=== PATIENT | female | born 1935 | race Caucasian/White ===

== ENCOUNTER → 2016-12-02 | Outpatient (CLI) | payer MEDICARE, OTHER ==
--- NOTE | 2016-12-02 11:46 | CT ---
EXAM DESCRIPTION: CT MAXILLOFACIAL WITHOUT IV CONTRAST CLINICAL HISTORY: MAXILARY SINUSITIS COMPARISON: None Available. TECHNIQUE: CT of the sinuses is performed with direct axial imaging technique. Multiplanar reformatted images are reviewed post along with source images. FINDINGS: No extra spinous abnormality is detected. No intracranial abnormality is seen. The orbits as imaged are unremarkable. The paranasal sinuses are clear. Mild deviation of the nasal septum from left to right is noted. No mucoperiosteal thickening or evidence of an air-fluid levels observed. Mild mucosal disease is observed at the ostia of both ostiomeatal complexes. Both of the complexes are patent. IMPRESSION: Minimal mucosal disease is observed at the ostia both ostiomeatal complexes. The sinuses are otherwise clear. Electronically signed by: Rodney Kay MD 12/02/2016 11:44
== END ==
LOC: CT 10:08
PROVIDERS: ATTEND Family Medicine
DX: J32.0 Chronic maxillary sinusitis (principal)

== ENCOUNTER → 2017-01-07 | Outpatient (CLI) | payer MEDICARE, OTHER | END | disposition home or self-care (01) | LOC: LAB.O 10:38 | PROVIDERS: ATTEND Family Medicine | DX: R19.7 Diarrhea, unspecified (principal) ==

== ENCOUNTER → 2017-01-27 | Outpatient (CLI) | payer MEDICARE, OTHER ==
--- NOTE | 2017-01-27 13:16 | MRI ---
Procedure: MR THORACIC SPINE WITHOUT IV CONTRAST Exam Date: 01/27/2017 11:22 AM CDT Ordering Provider: RUSSELL CELAYA Clinical Indication: BACK PAIN Comparison: None Technique: Multiplanar MRI of the thoracic spine was obtained without the intravenous administration of contrast medium. Findings: There is normal signal within the marrow of the thoracic vertebral bodies. There is no marrow signal abnormality to suggest fracture or neoplasm. The intervertebral disc spaces are of normal signal characteristics. There is minimal disc bulge is seen within the lower thoracic spine without focal disc protrusion or focal herniation. No spinal canal or foraminal stenosis. The thoracic spinal cord is of normal signal and contour. The conus is of normal signal and contour and terminates at the L1 level. There is no paraspinal mass. There is no prevertebral fluid collection. Impression: Minimal degenerative disc changes in the lower thoracic spine. Otherwise, unremarkable MRI of the thoracic spine. Electronically signed by: Immanuel Mccarty MD 01/27/2017 1:15 PM CDT
== END | disposition home or self-care (01) ==
LOC: MRI 11:12
PROVIDERS: ATTEND Family Medicine
DX: M54.6 Pain in thoracic spine (principal)

== ENCOUNTER → 2017-03-28 | Outpatient (CLI) | payer MEDICARE, OTHER ==
--- NOTE | 2017-03-29 02:31 | US ---
Procedure: US ABDOMEN Exam Date: 03/28/2017 Ordering Provider: CHUCK KOROMA Clinical Indication: GENERALIZED ABD PN Comparison: 04/12/2009 CT abdomen Technique: Real-time ultrasonography was obtained over the abdominal viscera and agricultural sales representative images were recorded. Findings: The liver is normal in size and contour. There is normal echogenicity throughout the liver. There are no intrahepatic masses. There are couple of cysts in the right hepatic lobe, largest measuring 1.7 cm. There is no intrahepatic ductal dilatation. The gallbladder is surgically absent. The extrahepatic common duct is normal in size measuring 5 mm. The spleen is normal in size and contour. There is normal internal echogenicity of the spleen. There are no splenic masses. The visualized portions of the pancreas are normal. The aorta has a normal appearance. The inferior vena cava has a normal appearance. The right kidney is normal in size and contour. The right kidney measures 10.6 cm in bipolar length. Cortical thickness and echogenicity are normal. There are no masses, calculi, or hydronephrosis. There is a 1.8 cm cyst. The left kidney is normal in size and contour. The left kidney measures 10.0 cm in bipolar length. Cortical thickness and echogenicity are normal. There are no masses, calculi, or hydronephrosis. There is an 8 mm cyst. There is no ascites. Impression: 1. Hepatic cysts. 2. Prior cholecystectomy. 3. Simple renal cysts in both kidneys. No follow-up required. Electronically signed by: Prateek Hinkle MD 03/29/2017 2:30 AM CDT
--- NOTE | 2017-03-29 23:44 | US ---
Procedure: US PELVIS Exam Date: 03/28/2017 Ordering Provider: CHUCK KOROMA Clinical Indication: GENERALIZED ABD PN Comparison: None Technique: Transabdominal ultrasound of the pelvis was obtained. Findings: The uterus and ovaries are surgically absent. No suspicious fluid collections or masses visualized. No pelvic free fluid. Impression: 1. No acute findings. Electronically signed by: Prateek Hinkle MD 03/29/2017 11:43 PM CDT
== END | disposition home or self-care (01) ==
LOC: US 11:28
PROVIDERS: ATTEND Nurse Practitioner Family
DX: R10.84 Generalized abdominal pain (principal)

== ENCOUNTER → 2017-04-30 | Outpatient (CLI) | payer MEDICARE, OTHER ==
--- NOTE | 2017-05-01 09:20 | MAM ---
History: Well woman exam. Date of exam: 04/30/2017 Services provided: Bilateral full field digital screening mammography. CAD, the images were reviewed with R2 computer aided detection. FINDINGS: Glandular tissue is scattered glandular contour with slight nodularity. Comparison with 2016 exam. No dominant mass, architectural distortion or clustered microcalcification. Stable nodular glandular pattern since 2016. Benign-appearing calcifications bilaterally.. IMPRESSION: Benign exam Recommendation: Routine annual mammography BIRAD CATEGORY: 2 BENIGN Electronically signed by: Patsy Blount MD 05/01/2017 9:19 AM CDT Workstation: [id number]
== END ==
LOC: MAMMO 13:55
PROVIDERS: ATTEND Family Medicine
DX: Z12.31 Encounter for screening mammogram for malignant neoplasm of breast (principal)

== ENCOUNTER → 2017-06-12 | Outpatient (CLI) | payer MEDICARE, OTHER | END | disposition home or self-care (01) | LOC: GMAJ 10:46 | PROVIDERS: ATTEND Family Medicine | DX: E03.9 Hypothyroidism, unspecified (principal) ==

== ENCOUNTER → 2017-10-27 | Outpatient (CLI) | payer MEDICARE, OTHER ==
--- NOTE | 2017-10-28 07:41 | RAD ---
EXAM DESCRIPTION: Ankle,Right 3 Views CLINICAL HISTORY: 81 years Female, ANKLE PAIN COMPARISON: None. FINDINGS: 3 views of the right ankle show no acute fracture or malalignment. Degenerative calcifications arise from the tips of the medial and lateral malleolar. The tibiotalar joint space and talar dome are well-maintained. Calcaneal enthesophyte formation is noted at the insertion sites of the plantar fascia and Achilles tendon. There is a rounded 2.4 cm sclerotic cortical-based lesion inferiorly in the body of the calcaneus without aggressive features. IMPRESSION: Degenerative changes including calcaneal spurring, but no acute right ankle abnormality. 2.4 cm cortical-based sclerotic lesion inferiorly in the calcaneus. This probably represents a large bone island or other benign lesion, less likely metastasis. Bone scan could be performed for further evaluation if clinically suspicious. Electronically signed by: Subhash Pereira MD 10/28/2017 7:39 AM OBSTETRIC ASSISTANT
== END | disposition home or self-care (01) ==
LOC: RAD 08:10
PROVIDERS: ATTEND Orthopaedic Surgery
DX: M25.571 Pain in right ankle and joints of right foot (principal)

== ENCOUNTER → 2017-12-29 | Outpatient (CLI) | payer MEDICARE, OTHER | LOC: GMAJ 10:43 | PROVIDERS: ATTEND Family Medicine | DX: E03.9 Hypothyroidism, unspecified (principal); E78.2 Mixed hyperlipidemia ==

== ENCOUNTER 2018-01-26 02:55 | Emergency (ER) | payer MEDICARE, OTHER ==
--- NOTE | 2018-01-26 03:25 | ED.PDOC ---
History of Present Illness - General Chief Complaint: Cardiovascular Problem Stated Complaint: Feels heart racing Time Seen by Provider: 01/26/18 03:05 Source: patient Exam Limitations: no limitations - History of Present Illness Initial Comments: Patient presents concerned that she might have gone into atrial fibrillation today. She has a history of it and takes fleicainide for it. She said she was having palpitations about 7 hours ago but they went away. Tonight they happened again and she said she got herself "worked up" about it. She thinks that she probably wasn't having atrial fibrillation this evening but wanted to be sure. No chest pain or dyspnea. Currently asymptomatic. She had her "labs" checked by her pcp two weeks ago. Timing/Duration: unsure Severity: mild Improving Factors: nothing Worsening Factors: nothing Associated Symptoms: denies symptoms Allergies/Adverse Reactions: Allergies NO KNOWN ALLERGY Allergy (Unverified 11/13/12 14:42) Home Medications: Ambulatory Orders Aspirin [(None)] 325 mg PO DAILY 12/24/14 Cholecalciferol [Vitamin D] 2,000 unit PO DAILY 12/24/14 Coenzyme Q10 (Ubidecarenone) [Coq-10] 1 cap PO DAILY 12/24/14 Esomeprazole Magnesium [Nexium] 40 mg PO DAILY 12/24/14 Estropipate [Ogen] 0.75 mg PO QD 12/24/14 Fenofibric Acid [Trilipix] 135 mg PO DAILY 12/24/14 Flecainide Acetate 50 mg PO BID 12/24/14 Levothyroxine Sodium [Synthroid] 50 mcg PO DAILY 12/24/14 Magnesium [Magnesium 250 mg] 1 tab PO DAILY 12/24/14 Tram-3 Fatty Acids [Fish Oil] 1 cap PO DAILY 12/24/14 Simvastatin 20 mg PO DAILY 12/24/14 Multiple Vitamins W/ Minerals [Centrum Silver] 1 tab PO 01/26/18 Potassium 01/26/18 Review of Systems - Review of Systems Constitutional: States: no symptoms reported EENTM: States: no symptoms reported Respiratory: States: no symptoms reported Cardiology: States: see HPI Gastrointestinal/Abdominal: States: no symptoms reported Genitourinary: States: no symptoms reported Musculoskeletal: States: no symptoms reported Skin: States: no symptoms reported Neurological: States: no symptoms reported Endocrine: States: no symptoms reported Hematologic/Lymphatic: States: no symptoms reported Past Medical History (General) - Patient Medical History Hx Seizures: No Hx Stroke: No Hx Dementia: No Hx Asthma: No Hx of COPD: Yes Hx Cardiac Disorders: Yes - a fib Hx Congestive Heart Failure: No Hx Pacemaker: No Hx Hypertension: No Hx Thyroid Disease: Yes Hx Diabetes: No Hx Gastroesophageal Reflux: Yes Hx Renal Disease: No Hx Cancer: No Hx of HIV: No Hx Hepatitis C: No Hx MRSA: No Surgical History: appendectomy, cholecystectomy, Hysterectomy - Vaccination History Hx Influenza Vaccination: Yes - Social History Hx Tobacco Use: Yes Hx Alcohol Use: No Hx Substance Use: No Hx Substance Use Treatment: No Hx Depression: No - Triage Comment ED Triage Comment: States histroy of a-fib and feels heart racing Family Medical History - Family History Mother Family History: No Known Physical Exam - Physical Exam General Appearance: Alert Respiratory: chest non-tender, lungs clear, normal breath sounds Cardiovascular/Chest: normal peripheral pulses, regular rate, rhythm, no edema, other - no auscultation/pulse mismatch Gastrointestinal/Abdominal: normal bowel sounds, non tender, soft Skin Exam: normal color Progress - Progress Progress: 01/26/18 03:26 EKG read by me destinee GREGG. No ST changes nor T wave inversions. No LBBB. Departure - Departure Clinical Impression: Palpitations Disposition: Discharge to Home or Self Care Condition: Good Departure Forms: ED Discharge - Pt. Copy, Patient Portal Self Enrollment Diet: resume usual diet Activity: increase activity as tolerated Referrals: Konstantin Alejandra MD [Primary Care Provider] - 1-2 Weeks Home Medications: Ambulatory Orders Aspirin [(None)] 325 mg PO DAILY 12/24/14 Cholecalciferol [Vitamin D] 2,000 unit PO DAILY 12/24/14 Coenzyme Q10 (Ubidecarenone) [Coq-10] 1 cap PO DAILY 12/24/14 Esomeprazole Magnesium [Nexium] 40 mg PO DAILY 12/24/14 Estropipate [Ogen] 0.75 mg PO QD 12/24/14 Fenofibric Acid [Trilipix] 135 mg PO DAILY 12/24/14 Flecainide Acetate 50 mg PO BID 12/24/14 Levothyroxine Sodium [Synthroid] 50 mcg PO DAILY 12/24/14 Magnesium [Magnesium 250 mg] 1 tab PO DAILY 12/24/14 Tram-3 Fatty Acids [Fish Oil] 1 cap PO DAILY 12/24/14 Simvastatin 20 mg PO DAILY 12/24/14 Multiple Vitamins W/ Minerals [Centrum Silver] 1 tab PO 01/26/18 Potassium 01/26/18 Additional Instructions: Follow up with your regular doctor as needed. Return to the E.R. if symptoms happen again.
[2018-01-26 03:38] VITALS: BP 153/71; TEMP 96.4; O2SAT 96
== END 2018-01-26 03:38 | disposition home or self-care (01) ==
LOC: ER 02:55
DX: R00.2 Palpitations (principal); I48.91 Unspecified atrial fibrillation; K21.9 Gastro-esophageal reflux disease without esophagitis; E07.9 Disorder of thyroid, unspecified; Z79.82 Long term (current) use of aspirin

== ENCOUNTER → 2018-03-26 | Outpatient (CLI) | payer MEDICARE, OTHER | LOC: GMAJS 16:35 | PROVIDERS: ATTEND Physician Assistant | DX: N39.0 Urinary tract infection, site not specified (principal) ==

== ENCOUNTER → 2018-04-15 | Outpatient (CLI) | payer MEDICARE, OTHER ==
--- NOTE | 2018-04-15 16:46 | MRI ---
EXAM DESCRIPTION: Brain w/oContrast: MRI. CLINICAL HISTORY: DIZZINESS COMPARISON: CT head without contrast 04/12/2009. TECHNIQUE: Multiplanar, high-field MRI unit, multiple diffusion sequences, multiple conventional sequences without contrast. FINDINGS: Multiple small foci of hyperintense FLAIR and T2-weighted signal in the periventricular white matter and york-white matter junctions of the cerebral hemispheres. . Bilateral hypointense FLAIR signal and hyperintense T2 signal in the basal ganglia. No hemorrhage, no cerebral edema, no mass-effect. Normal signal in the brainstem and cerebellar hemispheres. No hemorrhage, no cerebral edema, no mass-effect. Concordance of the diffusion and non-diffusion sequences with no diffusion restriction. Cortical sulci, ventricles, and other CSF spaces, and the subdural spaces are minimally prominent but probably age appropriate. No effacement or displacement. No midline shift. No extra-axial hemorrhage. Normal flow signal void in the major vessels of the [place], and the venous sinuses. IACs are symmetric bilaterally. Minimal fluid signal in the inferior right mastoid air cells. Normal signal in the bilateral cerebellopontine angles. Pituitary gland occupies approximately half of the sella. Base of the cerebellar tonsils is at the level of the foramen magnum. Paranasal sinuses.. The bony calvarium is intact. IMPRESSION: 1. Multiple bilateral hyperintensities in the white matter and subcortical white matter most likely related to aging and cerebral microvascular disease. Possible old basal ganglia infarcts bilaterally. No diffusion restriction is seen. No hemorrhage, mass effect, cerebral edema or midline shift. 2. Mastoiditis on the right. Electronically signed by: Shashi Tello MD 04/15/2018 4:45 PM CDT
== END ==
LOC: MRI 13:00
PROVIDERS: ATTEND Family Medicine
DX: R42 Dizziness and giddiness (principal); H70.91 Unspecified mastoiditis, right ear

== ENCOUNTER → 2018-07-27 | Outpatient (CLI) | payer MEDICARE, OTHER ==
--- NOTE | 2018-07-27 16:32 | US ---
EXAM DESCRIPTION: Breast,Left: Ultrasound CLINICAL HISTORY: 82 yearsFemaleABN MAMMO COMPARISON: Digital diagnostic mammogram left breast on this visit. Bilateral screening digital breast tomosynthesis 07/08/2018. TECHNIQUE: Transcutaneous scanning of the left breast utilizing york-scale and Doppler modes. Scanning performed by the inbound call center agent and Dr. Tello. FINDINGS: Scanning in the lower outer quadrant of the left breast, with emphasis on the 400 clock position 6 cm from the nipple. Multiple small cysts and dilated ducts. Hypoechoic circumscribed oval-shaped mass with parallel orientation and partially posterior shadowing measuring approximately 3.1 x 3.5 mm and not vascular. Most likely a lymph node or fibroadenoma. Circumscribed hypoechoic mass with echogenic center measuring 6.8 x 2.8 mm with parallel orientation and mixed posterior features. Nonvascular. No abnormal distinct solid mass. No parenchymal edema or large calcifications. No overlying skin changes or abnormal vascularity. IMPRESSION: 1. Bi-Rads Category 2: Benign. 2. Please refer to diagnostic digital left breast tomosynthesis and 2-D image examination and report on this visit. The FINDINGS and the FOLLOW-UP plan were reviewed in person with the patient after the examination. Written communication explaining the IMPRESSION and FOLLOW-UP will be mailed to the patient and referring care provider. Electronically signed by: Shashi Tello MD 07/27/2018 4:31 PM CDT
--- NOTE | 2018-07-28 08:51 | MAM ---
EXAM DESCRIPTION: 3D Diagnostic, Left: Digital Mammography CLINICAL HISTORY: 82 yearsFemaleABNORMAL MAMMO . Focal asymmetry and groups of heterogeneous calcifications in the lateral mid left breast.. COMPARISON: Bilateral screening digital breast tomosynthesis 07/08/2018.. . TECHNIQUE: Bilateral LM projection full-field images, digital mammographic tomosynthesis technique. Digital spot focal magnification image in the CC projection lateral middle third left breast CAD not utilized. FINDINGS: The breast parenchymal density pattern is: Scattered areas of fibroglandular density. No skin thickening or nipple retraction . Left nipple is slightly inverted. Vascular calcifications, intramammary lymph nodes, secretory and solitary microcalcifications. In the lower outer quadrant of the anterior middle third of the left breast are small microcalcifications and coarse calcifications and asymmetric densities. A lobulated mass with calcifications in the upper outer quadrant of the left breast is most likely a degenerating fibroadenoma or lymph node. Ultrasound: Scanning in the lower outer quadrant of the left breast, with emphasis on the 400 clock position 6 cm from the nipple. Multiple small cysts and dilated ducts. Hypoechoic circumscribed oval-shaped mass with parallel orientation and partially posterior shadowing measuring approximately 3.1 x 3.5 mm and not vascular. Most likely a lymph node or fibroadenoma. Circumscribed hypoechoic mass with echogenic center measuring 6.8 x 2.8 mm with parallel orientation and mixed posterior features. Nonvascular. No abnormal distinct solid mass. No parenchymal edema or large calcifications. No overlying skin changes or abnormal vascularity. IMPRESSION: Benign exam. BIRAD CATEGORY: 2 BENIGN FINDINGS. RECOMMENDATIONS: FOLLOW UP: Return to routine digital bilateral screening, one year interval from June 2018. The FINDINGS and the FOLLOW-UP plan were reviewed in person with the patient after the examination. Written communication explaining the IMPRESSION and FOLLOW-UP will be mailed to the patient and referring care provider. According to the [employer], yearly mammograms are recommended starting at age 40 and continuing as long as a woman is in good health. Any breast change noted on a breast self-exam should be reported promptly to the patient's healthcare provider. Breast MRI is recommended for women with an approximately 20-25% or greater lifetime risk of breast cancer, including women with a strong family history of breast or ovarian cancer and women who have been treated for Hodgkin's disease. A negative mammographic report should not delay tissue diagnosis in patients with significant clinical history or physical findings. Extremely dense breast tissue limits the sensitivity of digital mammography. Electronically signed by: Shashi Tello MD 07/28/2018 8:49 AM CDT
== END ==
LOC: MAMMO 10:00
PROVIDERS: ATTEND Family Medicine
DX: R92.8 Other abnormal and inconclusive findings on diagnostic imaging of breast (principal)
CPT/HCPCS: 76641; 77065; G0279

== ENCOUNTER → 2018-08-20 | Outpatient (CLI) | payer MEDICARE, OTHER ==
--- NOTE | 2018-08-21 09:47 | MRI ---
EXAM DESCRIPTION: Lumbar Spine w/o Contrast : Magnetic Resonance Imaging. CLINICAL HISTORY: RADICULOPATHY COMPARISON: MRI scan cervical spine on the same visit. TECHNIQUE: Multiplanar, multiple standard sequences, non contrast MRI, lumbar spine. FINDINGS: L5-S1: Moderate disc space loss and disc desiccation predominantly in the midline into the left of midline. Left lateral disc osteophyte complex encroaching on the foramen. 6 mm grade 1 anterolisthesis. Mild right foraminal narrowing. Minimal flavum ligament hypertrophy with moderate facet arthrosis and hypertrophy. Mild canal narrowing. L4-5: Disc desiccation posterior broad-based mild bulge. Significant flavum ligament hypertrophy and minimal facet arthrosis with triangular shaped canal. Moderate narrowing. Mild left foraminal narrowing and right foramen patent. Deformity of the left L5 pars interarticularis with probable spondylolysis. L3-4: Disc desiccation with more narrowing and moderate type I endplate reactive changes on the right. Mild to moderate foraminal narrowing with disc spur complex encroaching on the foramen. Minimal posterior broad-based bulge. Minimal hypertrophy of the flavum ligaments and arthrosis of the facets. No significant canal narrowing. Left foramen patent. L2-3: Disc desiccation moderate to severe disc space narrowing left of midline. Left lateral disc osteophyte complex bulge with Modic type II endplate reactive changes. Moderate to severe right foraminal narrowing. 3 mm grade 1 retrolisthesis. Minimal posterior disc bulge with minimal inferior migration of the disc margin narrowing the bilateral subarticular recesses. Mild narrowing right foramen. L1-2: Disc desiccation anterior bulging and spurs. 3 mm grade 1 retrolisthesis and posterior broad-based disc bulge. Minimal hypertrophy of the flavum ligament with left facet arthrosis. No significant canal narrowing. Moderate narrowing of the left foramen and right foramen patent. Conus terminates at this level. T12-L1: Disc desiccation anterior herniation is abutting the posterior aorta at the level of the origins of the celiac axis and SMA. Tiny posterior bulge. No significant canal narrowing. Bilateral foramina are patent. . L1-L4 levoscoliosis Paravertebral soft tissues paraspinal muscle atrophy.. Right T1 and T2 circumscribed density in the superior L3 vertebral body consistent with hemangioma. Otherwise normal marrow signal in the remaining vertebral bodies and the posterior elements. Vertebral bodies are not compressed at any level. IMPRESSION: 1. Left side spondylosis at L5-S1 with disc spur complex encroaching on the foramen. 6 Millimeter grade 1 anterolisthesis. Left foraminal stenosis. 2. Minimal L4-5 disc bulge with significant encroachment on the posterior canal from the flavum ligaments and facets with moderate narrowing. 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 3. Mild right-sided moderate spondylosis at L3-4 with disc spur complex encroaching on the foramen with moderate narrowing. No significant canal narrowing. 4. Grade 1 anterolisthesis L2-3 with moderate right side spondylosis and moderate to severe foraminal narrowing. Narrowing of the bilateral subarticular recesses. Also grade 1 retrolisthesis at L2-3. Moderate narrowing of the left foramen by facet arthrosis and ligament hypertrophy. Electronically signed by: Shashi Tello MD 08/21/2018 9:45 AM CDT
--- NOTE | 2018-08-21 10:08 | MRI ---
EXAM DESCRIPTION: Cervical Spine: MRI. CLINICAL HISTORY: NECK PAIN COMPARISON: MRI lumbar scan on the same visit. TECHNIQUE: Multiplanar MRI, multiple sequences, non-contrast High-field.. Cervical spine. FINDINGS: C3-4: Disc desiccation with anterior bulging. Posterior midline protrusion 4 mm impressing on the cord but no cord edema. Small right uncinate spur and right neural foraminal narrowing. Moderate canal narrowing and left neural foramen patent. Minimal arthrosis right facet. C4-5: Disc desiccation and moderate disc space loss with anterior spurs and disc bulging. Tiny posterior disc osteophyte complex encroaching on the cord. Right facet arthrosis and uncinate spur with borderline neural foraminal stenosis. Moderate left neural foraminal narrowing and canal narrowing. C5-6: Disc desiccation and moderate disc space loss. Anterior bulging and spurs. Posterior small disc spur complex is broad-based and abutting the cord. More to the right of midline with right paracentral mild canal stenosis. Bilateral mild foraminal narrowing more on the right. Flavum ligament hypertrophy. Facets are negative. C6-7: Disc desiccation and minimal disc space loss. Anterior bulging and spurs. Posterior tiny disc spur complex bulge and mild canal narrowing. Right uncinate spur. Mild right neural foraminal narrowing. Flavum ligament hypertrophy. Facets are negative. Normal signal in the remaining discs with no bulging. Disc spaces preserved. Canal and neural foramina are patent. Facets are negative. Spinal alignment C2-C4 kyphosis. No cord compression or cord edema. Atlantoaxial joint with marginal hypertrophic changes.. Base of the cerebellar tonsils is at the level of the foramen magnum. Paravertebral soft tissues unremarkable. Vertebral bodies are not compressed at any level. Normal marrow signal in the remaining vertebral bodies and the posterior elements. IMPRESSION: 1. Posterior midline protrusion of the C3-4 disc impressing on the cord with no cord edema. Moderate central canal narrowing. 2. Tiny C4-5 posterior disc osteophyte complex encroaching on the cord. Disc space narrowing. Right borderline neural foraminal stenosis. 3. C5-6 disc space narrowing. Posterior right disc bulge and osteophyte with right paracentral mild canal stenosis. 4. Disc desiccation and disc space loss. Mild canal and neural foraminal narrowing. Electronically signed by: Shashi Tello MD 08/21/2018 10:07 AM CDT
== END ==
LOC: MRI 10:00
PROVIDERS: ATTEND Family Medicine
DX: M54.16 Radiculopathy, lumbar region (principal); M51.26 Other intervertebral disc displacement, lumbar region; M43.16 Spondylolisthesis, lumbar region; M50.21 Other cervical disc displacement, high cervical region; M50.222 Other cervical disc displacement at C5-C6 level

== ENCOUNTER → 2018-10-01 | Outpatient (CLI) | payer MEDICARE, OTHER ==
--- NOTE | 2018-10-02 16:12 | MAM ---
EXAM DESCRIPTION: Diagnostic Mammo,Right: Digital Mammography CLINICAL HISTORY: 82 [id number] new onset of Pain in the left breast. No palpable mass.. COMPARISON: Bilateral screening digital breast tomosynthesis 07/08/2018.. Diagnostic tomosynthesis left breast mammography and targeted left breast ultrasound 07/27/2018. TECHNIQUE: Right breast CC LM MLO projection full-field images, digital mammographic tomosynthesis technique. CAD not utilized. FINDINGS: The breast parenchymal density pattern is: Scattered areas of fibroglandular density. No skin thickening or nipple retraction fibroglandular tissues kind of nodular. Vascular calcifications. Solitary microcalcifications and coarse calcifications. Right axillary lymph nodes. No new focal, stellate mass or density, focal asymmetry , and no suspicious microcalcifications right breast. Stable mammograms compared to prior screening and diagnostic exams, taking into account differences in mammographic technique IMPRESSION: Benign exam. BIRAD CATEGORY: 2 BENIGN FINDINGS. RECOMMENDATIONS: FOLLOW UP: Routine digital bilateral mammographic screening, one year interval from June 2018. Written communication explaining the IMPRESSION and follow-up, will be mailed to the patient and referring health care provider. According to the [employer], yearly mammograms are recommended starting at age 40 and continuing as long as a woman is in good health. Any breast change noted on a breast self-exam should be reported promptly to the patient's healthcare provider. Breast MRI is recommended for women with an approximately 20-25% or greater lifetime risk of breast cancer, including women with a strong family history of breast or ovarian cancer and women who have been treated for Hodgkin's disease. A negative mammographic report should not delay tissue diagnosis in patients with significant clinical history or physical findings. Extremely dense breast tissue limits the sensitivity of digital mammography. Electronically signed by: Shashi Tello MD 10/02/2018 4:11 PM [facility]
== END ==
LOC: MAMMO 10:30
PROVIDERS: ATTEND Nurse Practitioner Family
DX: N64.4 Mastodynia (principal); N64.59 Other signs and symptoms in breast

== ENCOUNTER → 2018-10-22 | Outpatient (CLI) | payer MEDICARE, OTHER | LOC: GMAJ 14:23 | PROVIDERS: ATTEND Family Medicine | DX: E03.9 Hypothyroidism, unspecified (principal) ==

== ENCOUNTER → 2019-05-12 | Outpatient (CLI) | payer MEDICARE, OTHER | LOC: GMAJ 16:57 | PROVIDERS: ATTEND Family Medicine | DX: R10.13 Epigastric pain (principal) ==

== ENCOUNTER → 2019-05-18 | Outpatient (CLI) | payer MEDICARE, OTHER ==
--- NOTE | 2019-05-18 14:20 | CT ---
PROVIDED CLINICAL HISTORY/REASON FOR EXAM: EPIGASTRIC PAIN STUDY TYPE/TECHNIQUE: CT ABDOMEN WITH IV CONTRAST COMPARISON: 04/12/2009 FINDINGS: The visualized lung bases are unremarkable. There are multiple low-attenuation liver lesions, some of which are too small to definitively characterize. However there are a few lesions which do not measure fluid attenuation. For reference in the left hepatic lobe, axial 23 there is a 1.4 cm lesion. This was likely present on the 04/12/2009 examination although it is shown slow interval growth. A separate reference posterior right hepatic lobe lesion measures 1.6 cm, axial 42, also likely present on the prior examination although it previously measured 1 cm. Cholecystectomy. The residual cystic duct is mildly dilated. No biliary dilatation. The portal vein is patent. The spleen there is an adrenal glands are unremarkable. Symmetric renal parenchymal enhancement. No hydronephrosis. No obstructing ureteral stone. Punctate nonobstructing inferior pole left renal calculus. Bilateral renal cysts. Scattered colonic diverticula without focal inflammatory change. No evidence of bowel obstruction. Tiny hiatal hernia. Small duodenal diverticulum. Focal dilatation of the infrarenal abdominal aorta measuring up to 2.4 cm. Diffuse atherosclerotic disease. No drainable fluid collection. No free air. No adenopathy. No acute or suspicious osseous abnormality. IMPRESSION: 1. No acute CT findings to account for epigastric pain. 2. Multiple incompletely characterized liver lesions, most of which were present on the April 12, 2009 examination which suggests a benign etiology although they have demonstrated interval growth. Electronically signed by: Mitch Louis MD 05/18/2019 2:18 PM CDT
== END ==
LOC: CT 09:33
PROVIDERS: ATTEND Family Medicine
DX: R10.13 Epigastric pain (principal); K76.89 Other specified diseases of liver

== ENCOUNTER 2019-06-03 05:38 | Day surgery (SDC) | payer MEDICARE, OTHER ==
[2019-06-03] MEDS ORDERED: PROPOFOL 200 MG/20 ML VIAL IV ONE (07:00)
[2019-06-03] MEDS ORDERED: LIDOCAINE 1% 10 ML VIAL INJ ONE (07:00)
[2019-06-03] MEDS ORDERED: LACTATED RINGERS 1,000 ML ONE (07:04)
[2019-06-03 09:18] VITALS: BP 176/77; TEMP 96.9; O2SAT 99
--- NOTE | 2019-06-10 08:11 | OP ---
DATE OF PROCEDURE: 06/03/19 PREOPERATIVE DIAGNOSIS: 1. Epigastric pain, rule out peptic ulcer disease. 2. Dysphagia. 3. History of possible esophagus stricture. PROCEDURE: 1. Esophagogastroduodenoscopy. SURGEON: Konstantin Ferris MD. PROCEDURE: In the Operative Suite after complete informed consent, the patient was gently placed lateral with mouth block in place. The endoscope was passed under direct vision through the posterior pharynx into the esophagus without difficulty. The stomach was easily entered, as was the duodenum to the second portion. There was no evidence of duodenal ulcers or inflammation. The stomach showed evidence of a mild gastritis. On retroflexion, there was no evidence of significant hernia or ulcer. Upon careful withdrawal through the esophagitis, the transition point in the esophagus appeared normal. Two congressional representative biopsies were taken in the antrum to rule out gastritis and rule out H. pylori. She tolerated the procedure well. She was awakened and taken to the Recovery Room in stable condition to be discharged. #[id number] [facility]
--- NOTE | 2019-06-11 14:53 | OP ---
DATE OF PROCEDURE: 06/03/19 PREOPERATIVE DIAGNOSIS: 1. Heartburn. 2. History of peptic ulcer disease. 3. Epigastric pain. POSTOPERATIVE DIAGNOSIS: 1. Heartburn. 2. History of peptic ulcer disease. 3. Epigastric pain. PROCEDURE: 1. EGD with biopsy times 2. SURGEON: Konstantin Ferris MD. PROCEDURE IN DETAIL: Once adequate general IV anesthesia was given, the patient was placed in the lateral position with a bite block in place. The endoscope was placed without difficulty. The cricopharyngeus appeared normal. We then intubated through the esophagus, through the stomach with no obvious abnormalities or bleeding to the second portion of the duodenum without difficulty. Upon careful withdrawal, there was no evidence of duodenal inflammation, ulcers or diverticula. The stomach showed evidence of possible mild gastritis, so two patient intake representative biopsies were taken. No obvious masses or ulcers were seen. Upon withdrawal, the gastroesophageal junction appeared normal with no evidence of significant hiatal hernia. The gastroesophageal junction appeared normal with no evidence of Fuentes's. The esophagus appeared normal. The procedure was completed. She was then awakened and taken to Recovery in stable condition to be discharged. #[id number] [facility]
== END 2019-06-03 09:05 | disposition home or self-care (01) ==
LOC: AMB 05:38
PROVIDERS: ATTEND Surgery
DX: K31.89 Other diseases of stomach and duodenum (principal); E78.00 Pure hypercholesterolemia, unspecified; M81.0 Age-related osteoporosis without current pathological fracture; Z88.2 Allergy status to sulfonamides; Z90.710 Acquired absence of both cervix and uterus; Z87.11 Personal history of peptic ulcer disease; Z79.899 Other long term (current) drug therapy
CPT/HCPCS: 00731; 43239; 88305; J3490; J7120

== ENCOUNTER → 2019-11-04 | Outpatient (CLI) | payer MEDICARE, OTHER | LOC: GMAJ 14:48 | PROVIDERS: ATTEND Family Medicine | DX: E03.8 Other specified hypothyroidism (principal); E78.00 Pure hypercholesterolemia, unspecified; R51 Headache ==

== ENCOUNTER → 2019-11-18 | Outpatient (CLI) | payer MEDICARE, OTHER ==
--- NOTE | 2019-11-18 16:17 | MRI ---
EXAM DESCRIPTION: Brain w/oContrast: MRI. CLINICAL HISTORY: HEADACHE COMPARISON: Noncontrast MRI scan brain 15 Apr 2018. TECHNIQUE: Multiplanar, high-field MRI unit, multiple diffusion sequences, multiple conventional sequences without contrast. FINDINGS: Bilateral small foci of hyperintense FLAIR and T2-weighted signal in the periventricular white matter and [place]/sub-cortical white matter junctions of the cerebral hemispheres. . No hemorrhage, no cerebral edema, no mass-effect. Stable since the prior study. Bilateral hyperintense T2 signal and hypointense T1, DWI, and FLAIR signal in the basal ganglia. No change in the prior study. No hemorrhage or mass effect. Normal signal in the brainstem and cerebellar hemispheres. No hemorrhage, no parenchymal edema, no mass-effect. Concordance of the diffusion and non-diffusion sequences with no diffusion restriction. Cortical sulci, ventricles, and other CSF spaces, and the subdural spaces are physiologic for the patient's age. No effacement or displacement. No midline shift. No extra-axial hemorrhage. Normal flow signal void in the major vessels of the [place], and the venous sinuses. IACs are symmetric bilaterally. Minimal fluid signal in the inferior right mastoid air cells, stable and normal signal in the left. No mass effect in the bilateral cerebellopontine angles. Hyperintense T2 signal in the semicircular canals on the left temporal bone stable. Pituitary gland occupies most of the sella. Minimal fluid signal in the distal sheaths abutting the optic nerves and the optic globes stable. Base of the cerebellar tonsils is at the level of the foramen magnum. Minimal mucoperiosteal thickening in the paranasal sinuses.. The bony calvarium is intact. IMPRESSION: 1. Periventricular white matter changes most likely related to cerebral microvascular disease and aging, and signal changes in the bilateral basal ganglia are stable since the prior study March 2018. 2. Stable mild mastoiditis on the right. Mild paranasal sinusitis is chronic.. Electronically signed by: Shashi Tello MD 11/18/2019 4:16 PM [facility]
== END ==
LOC: MRI 10:10
PROVIDERS: ATTEND Family Medicine
DX: R90.82 White matter disease, unspecified (principal); H70.91 Unspecified mastoiditis, right ear; J32.9 Chronic sinusitis, unspecified

== ENCOUNTER → 2020-03-16 | Outpatient (CLI) | payer MEDICARE, OTHER ==
--- NOTE | 2020-03-16 08:52 | RAD ---
EXAM DESCRIPTION: Shoulder,Left 2 or More Views CLINICAL HISTORY: SHOULDER PAIN COMPARISON: None. IMPRESSION: 4 views of the left shoulder shows diffuse osteopenia the osseous structures. No acute fracture, focal bone destruction, or joint dislocation is seen. Mild narrowing of the glenohumeral joint with joint line osteophytes is seen suggesting mild osteoarthritic changes. Mild osteoarthritic changes of the left acromioclavicular joint are seen. Incidentally noted are moderate calcifications of the left carotid bulb. Electronically signed by: Donavon Yi MD 03/16/2020 8:50 AM CDT
== END ==
LOC: RAD 08:34
PROVIDERS: ATTEND Orthopaedic Surgery
DX: M19.012 Primary osteoarthritis, left shoulder (principal); M25.712 Osteophyte, left shoulder; M85.812 Other specified disorders of bone density and structure, left shoulder; I65.22 Occlusion and stenosis of left carotid artery

== ENCOUNTER → 2020-03-20 | Outpatient (CLI) | payer MEDICARE, OTHER ==
--- NOTE | 2020-03-20 11:26 | MRI ---
Study: MRI of the Left Shoulder. Indication: PAIN IN LEFT SHOULDER Technique: Multiplanar, multi sequence MRI of the left shoulder was obtained without intravenous contrast. Comparison: None. Findings: Moderate AC joint osteoarthritis with a moderate size joint effusion communicating with the subacromial/subdeltoid bursa. Superior migration of the humeral head and abutting the undersurface of the acromion which is remodeled. Full-thickness, fullwidth supraspinatus tendon tearing with involvement of the anterior two thirds infraspinatus tendon. Torn tendon fibers retracted to the level glenohumeral joint line. Full-thickness tearing superior two thirds of the subscapularis tendon insertion. Mild to moderate atrophy and grade 2 fatty infiltration rotator cuff musculature. Long head biceps tendon torn and distally retracted. Circumferential labral truncation and degeneration. Mild to moderate glenohumeral osteoarthritis with areas of grade 2 and 3 chondral loss and small inferior osteophyte formation. Moderate size joint effusion. No acute fracture. Impression: Full-thickness, fullwidth retracted supraspinatus tendon tear with involvement of the anterior two thirds of the infraspinatus tendon. Full-thickness tearing superior two thirds subscapularis tendon insertion. Mild to moderate atrophy and grade 2 fatty infiltration rotator cuff muscular. Long head biceps tendon torn and distally retracted. Circumferential labral truncation and degeneration. Mild/moderate glenohumeral joint osteoarthritis with a moderate size joint effusion. Moderate AC joint osteoarthritis. Electronically signed by: Farhat Gibbs MD 03/20/2020 11:25 AM CDT
== END ==
LOC: MRI 10:00
PROVIDERS: ATTEND Orthopaedic Surgery
DX: M75.102 Unspecified rotator cuff tear or rupture of left shoulder, not specified as traumatic (principal); M62.512 Muscle wasting and atrophy, not elsewhere classified, left shoulder; S46.112A Strain of muscle, fascia and tendon of long head of biceps, left arm, initial encounter; S43.432A Superior glenoid labrum lesion of left shoulder, initial encounter; M19.012 Primary osteoarthritis, left shoulder; M25.412 Effusion, left shoulder

== ENCOUNTER → 2020-03-28 | Outpatient (CLI) | payer MEDICARE, OTHER | LOC: GMAJ 14:53 | PROVIDERS: ATTEND Family Medicine | DX: E03.9 Hypothyroidism, unspecified (principal); E78.00 Pure hypercholesterolemia, unspecified ==

== ENCOUNTER → 2020-06-09 | Outpatient (CLI) | payer MEDICARE, OTHER ==
--- NOTE | 2020-06-09 16:32 | CT ---
EXAM DESCRIPTION: Chest w/o Contrast CLINICAL HISTORY: 84 years, Female, COUGH COMPARISON: Previous chest CT with contrast May 24, 2016 TECHNIQUE: Thin-section noncontrast axial CT images are obtained according to our protocol. Reconstructed MPR images are created and reviewed as well. FINDINGS: Lungs: Small groundglass nodule in the right upper lobe measures 7 mm (image 34, series 4). No groundglass nodule was seen in this area on the previous study. Follow-up as per recommendations below. Punctate granuloma is seen in the right paraspinous region right upper lobe. Calcified granuloma in the lateral basal segment right middle lobe measures 2 mm. Another calcified granuloma in the medial superior segment right lower lobe measures 3 mm. A noncalcified nodule with chronic prominence appearance in the periphery of the left upper lobe measures 3 mm (image 38, series 4). Compared to previous study May 24, 2019, these tiny nodules were present although not calcified at that time. Clustered nodules with minimal groundglass infiltrate in the periphery of the right middle lobe. This suggests indolent infection with fungal agent or atypical mycobacterium. Mild scarring in the inferior lingula and medial right middle lobe. Vague groundglass density in the anterior segment left upper lobe. Mediastinum: Lymph nodes are normal in size. Small hiatal hernia behind the heart. Normal vascular contours. Heart size is normal with no pericardial effusion. Chest wall/axilla: No mass or adenopathy. Breast tissue appears symmetrical. Right hemidiaphragm is elevated. Lower neck/supraclavicular: No mass or adenopathy. Upper abdomen: Small left lobe liver cysts measures 6 mm each in the upper left lobe. Slightly larger cysts are seen in the medial segment left lobe near the falciform ligament measuring 1.7 cm and 0.5 cm. Lesion just below the level of the gallbladder fossa measures 1 cm probably an additional cyst. Clips in the gallbladder fossa are present. A cystic structure in the gallbladder fossa is smaller than expected for a normal gallbladder and may be cystic duct mucocele 3.3 x 1.7 cm. This was not seen on the previous study. The liver lesions were present previously near the falciform ligament and gallbladder fossa but appears slightly larger. Otherwise unremarkable upper abdominal viscera. Coronal and sagittal reformatted images confirm the findings. IMPRESSION: Groundglass nodule in the right upper lobe measures 7 mm. Follow-up as per recommendations below. 2017 Fleischner Society Recommendations for Subsolid Lung Nodule Follow-Up based on size (average of long- and short-axis diameters). Use most suspicious nodule for followup. Single nodule > or = 6 mm Ground glass: CT at 6-12 months to confirm persistence, then CT every 2 years until 5 years Few tiny granulomas in the lungs are considered incidental findings. Minimal nodular infiltrate in the periphery of the right upper lobe suggesting indolent infection. Liver lesions consistent with cysts. This exam was performed according to our departmental dose-optimization program, which includes automated exposure control, adjustment of the mA and/or kV according to patient size and/or use of iterative reconstruction technique. Total DLP equals 317.89 mGycm. Electronically signed by: Harjit Perez MD 06/09/2020 4:30 PM CDT
== END ==
LOC: CT 11:00
PROVIDERS: ATTEND Family Medicine
DX: R05 Cough (principal); R91.1 Solitary pulmonary nodule

== ENCOUNTER → 2020-06-26 | Outpatient (CLI) | payer MEDICARE, OTHER ==
--- NOTE | 2020-06-26 17:14 | US ---
EXAM DESCRIPTION: Abdomen,Complete: Ultrasound. CLINICAL HISTORY: 84 years FemaleRIGHT UPPER QUADRANT ABDOMINAL TENDERNESS COMPARISON: CT abdomen May 2019. TECHNIQUE: Transabdominal scanning: grayscale and Doppler modes. FINDINGS: Gallbladder: Surgically removed. No fluid in the gallbladder fossa. Non-tender with transducer pressure. Common bile duct: caliber 4.0 mm within normal limits. Liver: normal echogenicity; contour liver capsule smooth where seen. No fluid around the liver. Intrahepatic biliary ducts normal caliber. Doppler hepatopedal flow and normal caliber portal vein 9 mm.. 1.6 x 1.4 x 1.2 cm. Cyst right lobe Long axis right lobe 13.1 cm. Pancreas: normal size and echogenicity. Duct not seen. Complete abdominal aorta: Normal caliber from the proximal segment to the distal bifurcation.. IVC: visualized and normal caliber. Right kidney: long axis measures 9.5 x 3.9 x 4.9 cm; volume 95.9 mL.. Physiologic cortical echogenicity.. Normal cortical thickness. Minimal capsular lobulation. No echogenic stones; no hydronephrosis. 2.2 x 1.9 x 1.8 cm cyst. Left kidney: long axis measures 10.0 x5.8 x 5.2 cm; volume 159.1 mL.. Physiologic cortical echogenicity. Normal cortical thickness. 5.8 mm stone with minimal acoustic shadowing in the lower pole. No hydronephrosis. 9.4 x 8.3 mm cyst in the mid kidney. Spleen: Normal. No focal lesions.. 9.9 cm long axis. Other: None. IMPRESSION: 1. Normal size and echogenicity of the liver with at least one cyst in the right hepatic lobe. Physiologic vascularity and ducts. Smooth capsule with no ascites. Normal appearance of the pancreas 2. Gallbladder has been surgically removed with no fluid in the gallbladder fossa. Normal caliber common bile duct. 3. Left kidney with 5 to 6 mm stone but no obstruction. Small cyst otherwise unremarkable with echogenicity related to age.. Right kidney with cyst and echogenicity related to age. Spleen is negative. Normal caliber of the abdominal aorta and proximal IVC. Electronically signed by: Shashi Tello MD 06/26/2020 5:12 PM CDT
== END ==
LOC: US 09:30
PROVIDERS: ATTEND Family Medicine
DX: K76.89 Other specified diseases of liver (principal); Z90.49 Acquired absence of other specified parts of digestive tract; N20.0 Calculus of kidney; N28.1 Cyst of kidney, acquired

== ENCOUNTER → 2020-06-29 | Outpatient (CLI) | payer MEDICARE, OTHER ==
--- NOTE | 2020-06-29 18:28 | CT ---
EXAM DESCRIPTION: Abdomen/Pelvis w/Contrast CLINICAL HISTORY: 84 years Female, LIVER CYST TECHNIQUE: This exam was performed according to our departmental dose-optimization program, which includes automated exposure control, adjustment of the mA and/or kV according to patient size and/or use of iterative reconstruction technique. COMPARISON: May 18, 2019 FINDINGS: Visualized lung bases are grossly unremarkable. Stable benign hepatic cysts. For reference in the left hepatic lobe measuring 1.6 cm series 2 image 27, previously 1.6 cm. No new hepatic lesion. No biliary dilatation. Cholecystectomy. The portal vein is patent. The spleen, pancreas and adrenal glands are unremarkable. 3 mm nonobstructing left renal calculus. No hydronephrosis. No obstructing ureteral stone. Bilateral renal cysts. Unremarkable bladder. No suspicious adnexal lesion. Scattered colonic diverticula without focal inflammatory change. No evidence of bowel obstruction. No findings to suggest appendicitis. No adenopathy. No focal fluid collection. No free air. Normal caliber abdominal aorta. Moderate hiatal hernia. Diffuse atherosclerotic disease. No acute or suspicious osseous abnormality. Scattered degenerative changes present. IMPRESSION: Stable benign hepatic cysts. No suspicious hepatic lesion. Electronically signed by: Mitch Louis MD 06/29/2020 6:26 PM CDT
== END ==
LOC: CT 10:00
PROVIDERS: ATTEND Surgery
DX: Z01.812 Encounter for preprocedural laboratory examination (principal); K76.89 Other specified diseases of liver

== ENCOUNTER → 2020-11-08 | Outpatient (CLI) | payer MEDICARE, OTHER ==
--- NOTE | 2020-11-09 09:10 | CT ---
TECHNIQUE: Spiral CT examination of the neck performed. Multiplanar reformats performed. Intravenous contrast was utilized. This exam was performed according to our departmental dose-optimization program, which includes automated exposure control, adjustment of the mA and/or kV according to patient size and/or use of iterative reconstruction technique. CLINICAL HISTORY PROVIDED: SIALOADENITIS COMPARISON: None available. FINDINGS: Nasal Cavity: Unremarkable. Paranasal Sinuses: Unremarkable. Nasopharynx: Unremarkable. Oropharynx: Evaluation limited by dental hardware. Oral Cavity: Unremarkable. Hypopharynx: Unremarkable. Larynx: Unremarkable. Trachea: Unremarkable. Thyroid: Unremarkable. Parotid Glands: Unremarkable. No sialolith. No inflammatory changes or focal fluid collection. No suspicious mass. Submandibular Glands: Unremarkable. No sialolith. No inflammatory changes or focal fluid collection. No suspicious mass. Carotids / Internal Jugular Veins: Scattered atherosclerotic disease. Skull Base: Unremarkable. Visible Brain and Orbits: Unremarkable. Lymph Nodes: Unremarkable. Soft Tissue Mass / Abscess: None present. Incidental Findings: No acute or suspicious osseous abnormality. Scattered degenerative changes present. Reversal of the normal cervical lordosis. IMPRESSION: No evidence of acute process. Electronically signed by: Mitch Louis MD 11/09/2020 9:08 AM [employer]
== END ==
LOC: CT 10:01
PROVIDERS: ATTEND Family Medicine
DX: Z01.812 Encounter for preprocedural laboratory examination (principal); K11.20 Sialoadenitis, unspecified

== ENCOUNTER → 2020-11-22 | Outpatient (CLI) | payer MEDICARE, OTHER ==
--- NOTE | 2020-11-22 14:38 | CT ---
EXAM DESCRIPTION: Chest w/Contrast CLINICAL HISTORY: 85 years Female, PULMONARY NODULE COMPARISON: CT chest 06/09/2020 TECHNIQUE: CT images through the chest with IV contrast. Multiplanar reformations provided. This exam was performed according to our departmental dose-optimization program, which includes automated exposure control, adjustment of the mA and/or kV according to patient size and/or use of iterative reconstruction technique. CT CHEST FINDINGS: Heart and mediastinum: Normal heart size. No pericardial effusion. Moderate hiatal hernia. No mediastinal adenopathy. No hilar adenopathy. Mild atherosclerosis. Thyroid Gland: Normal. Lungs: Groundglass nodule in the right upper lobe has resolved and likely was infectious or inflammatory. No new suspicious pulmonary nodule or mass. Airways: Normal. Pleura: Normal. Musculoskeletal and Soft Tissues: No acute fracture or aggressive appearing osseous lesion. Chronic right rib fractures. Soft tissues unremarkable. Subphrenic Structures: Hypodense lesions within the left hepatic lobe measuring 1.7 cm likely representing hemangiomas or cysts. Subcentimeter cortical left renal cyst. IMPRESSION: 1. No acute abnormality of the chest. 2. Resolved ground glass nodule right upper lobe which was likely infectious or inflammatory. Electronically signed by: Serg Mora MD 11/22/2020 2:37 PM [employer] [facility]
== END ==
LOC: CT 10:11
PROVIDERS: ATTEND Family Medicine
DX: R91.1 Solitary pulmonary nodule (principal); K11.20 Sialoadenitis, unspecified

== ENCOUNTER → 2020-12-01 | Outpatient (CLI) | payer MEDICARE, OTHER ==
--- NOTE | 2020-12-02 09:24 | RAD ---
XR PELVIS 1-2 VIEWS HISTORY: 85 years Female PAIN COMPARISON: CT abdomen and pelvis dated June 29, 2020. TECHNIQUE: Single AP view of the pelvis. FINDINGS: Sacrum is partially obscured by overlying bowel. No acute fracture or dislocation detected. Moderate narrowing of the hip joint spaces bilaterally. Moderate to severe degenerative changes in the partially imaged the lumbar spine. Included overlying soft tissues demonstrate no definite acute abnormality. IMPRESSION: No acute osseous abnormality observed. Degenerative changes in the hips and spine as discussed. Electronically signed by: Bryan Cox MD 12/02/2020 9:23 AM [facility]
--- NOTE | 2020-12-02 09:33 | RAD ---
XR KNEE 4 OR MORE VIEWS HISTORY: 85 years Female PAIN COMPARISON: None. TECHNIQUE: 4 views of the left knee. FINDINGS: Left knee arthroplasty changes are noted. Hardware appears intact. No radiographic evidence of hardware loosening. Subtle linear lucency projects within the superolateral aspect of the patella. This could indicate fracture in the setting of recent trauma or recent arthroplasty. Remaining osseous structures appear intact. No dislocation observed. No diagnostic soft tissue abnormality detected. IMPRESSION: Subtle linear lucency in the superolateral patella could represent acute fracture in the setting of recent trauma or recent arthroplasty. CT may provide more definitive assessment if clinically warranted. No additional acute findings. Electronically signed by: Bryan Cox MD 12/02/2020 9:32 AM [facility]
== END ==
LOC: RAD 08:53
PROVIDERS: ATTEND Orthopaedic Surgery
DX: T84.84XA Pain due to internal orthopedic prosthetic devices, implants and grafts, initial encounter (principal); M16.0 Bilateral primary osteoarthritis of hip; M47.9 Spondylosis, unspecified

== ENCOUNTER → 2020-12-05 | Outpatient (CLI) | payer MEDICARE, OTHER ==
--- NOTE | 2020-12-06 15:18 | NM ---
EXAM DESCRIPTION: Bone Scan, 3Phase: Nuclear Medicine CLINICAL HISTORY: 85 years Female KNEE PAIN DUE TO JOINT PROSTHESIS LEFT. COMPARISON: 4 views left knee December 01. TECHNIQUE: Patient injected with 25.5 mCi of technetium 99M MDP IV. Immediate flow gamma camera images were obtained of the bilateral knees, anterior projection. "Blood pool" images were then obtained of the bilateral knees anterior projection. Delayed gamma camera images bilateral knees from anterior-posterior and lateral projections were obtained 3 hr after injection. FINDINGS: Phase I-flow: Increased flow in the left superficial femoral artery and increased activity in the lateral aspect of the left knee. Photopenic area over the right knee indicates right knee arthroplasty. Phase II-blood pool: Symmetric activity in the bilateral superficial femoral arteries. Abnormal activity in the lateral superior aspect of the left knee in the vicinity of the patella. Photopenic defects caused by knee arthroplastic components bilaterally. Phase 3-static images: Intense uptake/activity in the left patella. Photopenic defects related to the hardware. Marginal increased bone activity abutting the components bilaterally. IMPRESSION: Intense activity in the left patella on triple phase radionuclide bone scan consistent with recent trauma and/or loosening of the articular plate. Activity elsewhere in the bilateral knees is physiologic with attenuation by bilateral arthroplastic hardware. Electronically signed by: Shashi Tello MD 12/06/2020 3:17 PM [facility]
== END ==
LOC: NM 09:08
PROVIDERS: ATTEND Orthopaedic Surgery
DX: T84.84XA Pain due to internal orthopedic prosthetic devices, implants and grafts, initial encounter (principal); M89.9 Disorder of bone, unspecified
CPT/HCPCS: 78315; A9503